=== PATIENT | female | born 1960 | race Two or more races ===

== ENCOUNTER 2022-07-29 07:10 | Day surgery (SDC) | payer OTHER ==
[~2022-07-29] VITALS: Ht 157.5 cm; Wt 94.3 kg
[~2022-07-29 07:10] MED LIST: CIPRO500 MG PO; COZAAR50 MG PO; D3 + K2 DOTS 11 EACH PO; FOSAMAX70 MG PO; HYDROCHLOROTHIA25 MG PO; MEGASTROL PO; TOPROL XL50 M1 PO
[2022-07-29] MEDS ORDERED: IBU600 MG PO (13:20)
== END 2022-07-29 17:50 | disposition home or self-care (01) ==
LOC: CIR.AMB 07:10
PROVIDERS: ATTEND Obstetrics & Gynecology Gynecology
DX: N95.0 Postmenopausal bleeding (principal); N84.0 Polyp of corpus uteri; I10 Essential (primary) hypertension; Z20.822 Contact with and (suspected) exposure to COVID-19; Z86.16 Personal history of COVID-19; Z88.8 Allergy status to other drugs, medicaments and biological substances

== ENCOUNTER 2022-09-09 07:13 | Outpatient (CLI) | payer OTHER ==
[~2022-09-09 07:13] MED LIST changes: +IBU600 MG PO
== END 2022-09-09 07:26 | disposition home or self-care (01) ==
LOC: LAB 07:13
DX: N92.1 Excessive and frequent menstruation with irregular cycle (principal); D64.9 Anemia, unspecified; N39.0 Urinary tract infection, site not specified; I10 Essential (primary) hypertension

== ENCOUNTER → 2022-09-25 10:09 | Outpatient (CLI) | payer OTHER ==
[~2022-09-25] VITALS: Ht 160 cm; Wt 95.3 kg
[~2022-09-25 10:09] MED LIST changes: +ALENDRONATE SOD70 MG PO; +VITAMIN D3 PO
== END | disposition home or self-care (01) ==
LOC: LAB 10:09
PROVIDERS: ATTEND Obstetrics & Gynecology Gynecology
DX: N85.00 Endometrial hyperplasia, unspecified (principal); Z20.822 Contact with and (suspected) exposure to COVID-19

== ENCOUNTER 2022-09-30 07:47 | Inpatient (IN) | payer OTHER ==
[~2022-09-30] VITALS: Ht 160 cm; Wt 95.3 kg
[2022-09-30] MEDS ORDERED: VITAMIN D350 MC4 (14:50)
[2022-09-30] MEDS ORDERED: MEGESTROL ACETA20 MG (14:50)
[2022-09-30] MEDS ORDERED: METOPROLOL TART50 MG (14:50)
[2022-10-01] MEDS ORDERED: IBU800 MG PO (07:43)
[2022-10-01] MEDS ORDERED: NEURONTIN300 MG PO (07:44)
== END 2022-10-01 12:31 | disposition home or self-care (01) | DRG 743 ==
LOC: CIR.AMB 07:47 → OB/GYN 14:01 → O/R 14:01 → OB/GYN 14:53
PROVIDERS: ADMIT Obstetrics & Gynecology Gynecology; ATTEND Obstetrics & Gynecology Gynecology
PROC: 0UT74ZZ Resection of Bilateral Fallopian Tubes, Percutaneous Endoscopic Approach (ICD-10-PCS; 2022-09-30)
PROC: 0UT24ZZ Resection of Bilateral Ovaries, Percutaneous Endoscopic Approach (ICD-10-PCS; 2022-09-30)
PROC: 0UT94ZZ Resection of Uterus, Percutaneous Endoscopic Approach (ICD-10-PCS; principal; 2022-09-30 10:30)
DX: N80.03 Adenomyosis of the uterus (principal); N72 Inflammatory disease of cervix uteri; Z20.822 Contact with and (suspected) exposure to COVID-19; N83.311 Acquired atrophy of right ovary; N83.312 Acquired atrophy of left ovary